=== PATIENT | male | born 1995 | race Two or more races ===

== ENCOUNTER 2020-01-28 17:06 | Emergency (ER) | payer OTHER ==
[~2020-01-28] VITALS: Ht 170.2 cm; Wt 87.8 kg
[2020-01-28 17:19] VITALS: BP 120/75
[2020-01-28] MEDS ORDERED: DIPH,PERTUSS(ACELL),TET VAC/PF 0.5 ML IM-VACC ONE ×2 (17:57→18:00)
[2020-01-28] MEDS ORDERED: LIDOCAINE 1%-EPI 1:100K, 20ML ONE (17:57)
[2020-01-28] MEDS ORDERED: LIDOCAINE 1%-EPI 1:100K, 20ML SQ ONE (18:00)
[2020-01-28] MEDS ORDERED: LIDOCAINE-MPF 1%, 5ML ONE (18:06)
[2020-01-28] MEDS ORDERED: NEOSPORIN OINT. PKT 1 PACKET ONE (18:28)
[2020-01-28] MEDS ORDERED: LIDOCAINE 1%, 10ML INFIL ONE (18:30)
== END 2020-01-28 19:08 | disposition home or self-care (01) ==
LOC: ED 17:49
DX: S61.213A Laceration without foreign body of left middle finger without damage to nail, initial encounter (principal); X58.XXXA Exposure to other specified factors, initial encounter; Y93.89 Activity, other specified; Y92.098 Other place in other non-institutional residence as the place of occurrence of the external cause; Y99.8 Other external cause status
CPT/HCPCS: 29130; 90471; 90715; 99283